=== PATIENT | male | born 1960 | race Caucasian/White ===

== ENCOUNTER → 2017-03-31 | Outpatient (CLI) | payer BC, OTHER ==
[~2017-03-31] MED LIST: AMARYL4 MG PO; AMBIEN CR12.5 MG PO; BENICAR HCT 401 EAC1 PO; BUTRANS1 EAC1 TRANSDERM; BYSTOLIC20 MG PO; CLEOCIN HCL150 MG PO; COLACE100 MG PO; DAILY VITE1 EACH PO; FLEXERIL PO; FOLIC ACID0.8 MG PO; FORTESTA60 GM; GENTEAL GEL DRO15 ML OPHTHALMIC; INVOKANA100 MG PO; JANUVIA100 MG PO; LEVOTHYROXINE 0.1 MG PO; METHOTREXA25 MG/1 ML IM; PERCOCET 10-321 EACH PO; PREDNISONE 5 MG5 MG PO; PRILOSEC 20 MG20 MG PO; PROBIOTIC1 EAC1 PO; QVAR8.7 G1; SINGULAIR 10 MG10 M1 PO; TRAZODONE HCL50 MG PO; VERAPAMIL HCL180 M4 PO
== END ==
LOC: HYPER 03-30 13:54
DX: T25.331A Burn of third degree of right toe(s) (nail), initial encounter (principal); T31.0 Burns involving less than 10% of body surface; E11.49 Type 2 diabetes mellitus with other diabetic neurological complication; E11.65 Type 2 diabetes mellitus with hyperglycemia; I87.2 Venous insufficiency (chronic) (peripheral); I10 Essential (primary) hypertension; E78.5 Hyperlipidemia, unspecified; E03.9 Hypothyroidism, unspecified; G89.4 Chronic pain syndrome; E66.01 Morbid (severe) obesity due to excess calories; Z68.41 Body mass index [BMI] 40.0-44.9, adult; T79.8XXA Other early complications of trauma, initial encounter; Y93.89 Activity, other specified; X08.8XXA Exposure to other specified smoke, fire and flames, initial encounter; Y92.89 Other specified places as the place of occurrence of the external cause; Y99.8 Other external cause status

== ENCOUNTER → 2017-04-06 | Outpatient (CLI) | payer BC, OTHER | LOC: HYPER 08:15 | DX: T25.331D Burn of third degree of right toe(s) (nail), subsequent encounter (principal); T31.0 Burns involving less than 10% of body surface; E11.65 Type 2 diabetes mellitus with hyperglycemia; E11.49 Type 2 diabetes mellitus with other diabetic neurological complication; I87.2 Venous insufficiency (chronic) (peripheral); I10 Essential (primary) hypertension; L84 Corns and callosities; E78.5 Hyperlipidemia, unspecified; E03.9 Hypothyroidism, unspecified; G57.91 Unspecified mononeuropathy of right lower limb; E66.01 Morbid (severe) obesity due to excess calories; Z68.41 Body mass index [BMI] 40.0-44.9, adult; X58.XXXD Exposure to other specified factors, subsequent encounter ==

== ENCOUNTER → 2017-04-13 | Outpatient (CLI) | payer BC, OTHER | LOC: HYPER 06:45 | DX: T25.331D Burn of third degree of right toe(s) (nail), subsequent encounter (principal); T31.0 Burns involving less than 10% of body surface; I87.2 Venous insufficiency (chronic) (peripheral); D86.9 Sarcoidosis, unspecified; E03.9 Hypothyroidism, unspecified; E11.49 Type 2 diabetes mellitus with other diabetic neurological complication; E66.01 Morbid (severe) obesity due to excess calories; Z68.41 Body mass index [BMI] 40.0-44.9, adult; G57.91 Unspecified mononeuropathy of right lower limb; I10 Essential (primary) hypertension; Z79.4 Long term (current) use of insulin; Z79.84 Long term (current) use of oral hypoglycemic drugs; X08.8XXD Exposure to other specified smoke, fire and flames, subsequent encounter ==

== ENCOUNTER → 2017-04-20 | Outpatient (CLI) | payer BC, OTHER | LOC: HYPER 07:08 | DX: T25.331D Burn of third degree of right toe(s) (nail), subsequent encounter (principal); T31.0 Burns involving less than 10% of body surface; E11.40 Type 2 diabetes mellitus with diabetic neuropathy, unspecified; E11.65 Type 2 diabetes mellitus with hyperglycemia; I87.2 Venous insufficiency (chronic) (peripheral); I10 Essential (primary) hypertension; E03.9 Hypothyroidism, unspecified; E78.5 Hyperlipidemia, unspecified; L84 Corns and callosities; G57.91 Unspecified mononeuropathy of right lower limb; E66.01 Morbid (severe) obesity due to excess calories; Z68.41 Body mass index [BMI] 40.0-44.9, adult; Z79.4 Long term (current) use of insulin; Z79.84 Long term (current) use of oral hypoglycemic drugs; T79.8XXD Other early complications of trauma, subsequent encounter; X08.8XXD Exposure to other specified smoke, fire and flames, subsequent encounter ==

== ENCOUNTER → 2017-04-27 | Outpatient (CLI) | payer BC, OTHER | LOC: HYPER 06:50 | DX: T25.331D Burn of third degree of right toe(s) (nail), subsequent encounter (principal); T31.0 Burns involving less than 10% of body surface; E11.65 Type 2 diabetes mellitus with hyperglycemia; I87.2 Venous insufficiency (chronic) (peripheral); I10 Essential (primary) hypertension; E78.5 Hyperlipidemia, unspecified; E03.9 Hypothyroidism, unspecified; L84 Corns and callosities; G57.91 Unspecified mononeuropathy of right lower limb; G89.4 Chronic pain syndrome; E66.01 Morbid (severe) obesity due to excess calories; Z68.41 Body mass index [BMI] 40.0-44.9, adult; Z79.84 Long term (current) use of oral hypoglycemic drugs; Z79.4 Long term (current) use of insulin; X08.8XXD Exposure to other specified smoke, fire and flames, subsequent encounter ==

== ENCOUNTER → 2017-05-10 | Outpatient (CLI) | payer BC, OTHER | LOC: HYPER 06:42 | DX: T25.331D Burn of third degree of right toe(s) (nail), subsequent encounter (principal); T31.0 Burns involving less than 10% of body surface; L84 Corns and callosities; E11.41 Type 2 diabetes mellitus with diabetic mononeuropathy; E11.65 Type 2 diabetes mellitus with hyperglycemia; I10 Essential (primary) hypertension; I87.2 Venous insufficiency (chronic) (peripheral); E78.5 Hyperlipidemia, unspecified; E03.9 Hypothyroidism, unspecified; E66.01 Morbid (severe) obesity due to excess calories; G89.4 Chronic pain syndrome; Z79.4 Long term (current) use of insulin; Z79.84 Long term (current) use of oral hypoglycemic drugs; Z68.41 Body mass index [BMI] 40.0-44.9, adult ==

== ENCOUNTER → 2017-05-24 | Outpatient (CLI) | payer BC, OTHER | LOC: HYPER 06:48 | DX: T25.331D Burn of third degree of right toe(s) (nail), subsequent encounter (principal); T31.0 Burns involving less than 10% of body surface; T79.8XXD Other early complications of trauma, subsequent encounter; L84 Corns and callosities; G57.91 Unspecified mononeuropathy of right lower limb; E11.40 Type 2 diabetes mellitus with diabetic neuropathy, unspecified; E11.65 Type 2 diabetes mellitus with hyperglycemia; I87.2 Venous insufficiency (chronic) (peripheral); E66.01 Morbid (severe) obesity due to excess calories; D86.9 Sarcoidosis, unspecified; E03.9 Hypothyroidism, unspecified; I10 Essential (primary) hypertension; G89.4 Chronic pain syndrome; E78.5 Hyperlipidemia, unspecified; Z79.4 Long term (current) use of insulin; Z79.84 Long term (current) use of oral hypoglycemic drugs ==

== ENCOUNTER → 2017-06-02 | Outpatient (CLI) | payer BC, OTHER | LOC: HYPER 07:16 | DX: T25.331D Burn of third degree of right toe(s) (nail), subsequent encounter (principal); T31.0 Burns involving less than 10% of body surface; E11.40 Type 2 diabetes mellitus with diabetic neuropathy, unspecified; E11.65 Type 2 diabetes mellitus with hyperglycemia; L84 Corns and callosities; I87.2 Venous insufficiency (chronic) (peripheral); I10 Essential (primary) hypertension; E66.01 Morbid (severe) obesity due to excess calories; E78.5 Hyperlipidemia, unspecified; E03.9 Hypothyroidism, unspecified; G57.91 Unspecified mononeuropathy of right lower limb; Z68.41 Body mass index [BMI] 40.0-44.9, adult; Z79.4 Long term (current) use of insulin; Z79.84 Long term (current) use of oral hypoglycemic drugs; X08.8XXD Exposure to other specified smoke, fire and flames, subsequent encounter ==

== ENCOUNTER → 2017-06-16 | Outpatient (CLI) | payer BC, OTHER | LOC: HYPER 07:51 | DX: T25.331D Burn of third degree of right toe(s) (nail), subsequent encounter (principal); G57.91 Unspecified mononeuropathy of right lower limb; I87.2 Venous insufficiency (chronic) (peripheral); E66.01 Morbid (severe) obesity due to excess calories; Z68.41 Body mass index [BMI] 40.0-44.9, adult; E03.9 Hypothyroidism, unspecified; D86.9 Sarcoidosis, unspecified; I10 Essential (primary) hypertension; E11.40 Type 2 diabetes mellitus with diabetic neuropathy, unspecified; E78.5 Hyperlipidemia, unspecified; Z79.4 Long term (current) use of insulin; Z79.84 Long term (current) use of oral hypoglycemic drugs; X08.8XXD Exposure to other specified smoke, fire and flames, subsequent encounter ==

== ENCOUNTER → 2017-07-18 | Outpatient (CLI) | payer BC, OTHER | LOC: HYPER 07-13 06:47 | DX: T25.331D Burn of third degree of right toe(s) (nail), subsequent encounter (principal); I87.2 Venous insufficiency (chronic) (peripheral); G57.91 Unspecified mononeuropathy of right lower limb; D86.9 Sarcoidosis, unspecified; E03.9 Hypothyroidism, unspecified; E11.40 Type 2 diabetes mellitus with diabetic neuropathy, unspecified; I10 Essential (primary) hypertension; E78.5 Hyperlipidemia, unspecified; E66.01 Morbid (severe) obesity due to excess calories; Z68.41 Body mass index [BMI] 40.0-44.9, adult; Z79.4 Long term (current) use of insulin; Z79.84 Long term (current) use of oral hypoglycemic drugs; X08.8XXD Exposure to other specified smoke, fire and flames, subsequent encounter ==

== ENCOUNTER → 2017-08-01 | Outpatient (CLI) | payer BC, OTHER | LOC: HYPER 06:46 | DX: T25.331D Burn of third degree of right toe(s) (nail), subsequent encounter (principal); T31.0 Burns involving less than 10% of body surface; E11.40 Type 2 diabetes mellitus with diabetic neuropathy, unspecified; E11.65 Type 2 diabetes mellitus with hyperglycemia; I87.2 Venous insufficiency (chronic) (peripheral); I10 Essential (primary) hypertension; L84 Corns and callosities; E03.9 Hypothyroidism, unspecified; E78.5 Hyperlipidemia, unspecified; E66.01 Morbid (severe) obesity due to excess calories; G89.4 Chronic pain syndrome; D86.9 Sarcoidosis, unspecified; G57.91 Unspecified mononeuropathy of right lower limb; Z68.41 Body mass index [BMI] 40.0-44.9, adult; Z79.4 Long term (current) use of insulin; Z79.84 Long term (current) use of oral hypoglycemic drugs; X08.8XXD Exposure to other specified smoke, fire and flames, subsequent encounter ==

== ENCOUNTER → 2017-08-24 | Outpatient (CLI) | payer BC, OTHER | LOC: HYPER 08-22 07:09 | DX: T25.321D Burn of third degree of right foot, subsequent encounter (principal); T31.0 Burns involving less than 10% of body surface; I87.2 Venous insufficiency (chronic) (peripheral); E66.01 Morbid (severe) obesity due to excess calories; D86.9 Sarcoidosis, unspecified; E03.9 Hypothyroidism, unspecified; I10 Essential (primary) hypertension; G89.4 Chronic pain syndrome; E11.40 Type 2 diabetes mellitus with diabetic neuropathy, unspecified; E78.5 Hyperlipidemia, unspecified; Z68.42 Body mass index [BMI] 45.0-49.9, adult; Z79.84 Long term (current) use of oral hypoglycemic drugs; Z79.4 Long term (current) use of insulin; X08.8XXD Exposure to other specified smoke, fire and flames, subsequent encounter ==

== ENCOUNTER → 2017-09-14 | Outpatient (CLI) | payer BC, OTHER | LOC: HYPER 07:07 | DX: T25.331D Burn of third degree of right toe(s) (nail), subsequent encounter (principal); E11.41 Type 2 diabetes mellitus with diabetic mononeuropathy; G58.9 Mononeuropathy, unspecified; I87.2 Venous insufficiency (chronic) (peripheral); E66.01 Morbid (severe) obesity due to excess calories; Z68.41 Body mass index [BMI] 40.0-44.9, adult; T31.0 Burns involving less than 10% of body surface; X08.8XXD Exposure to other specified smoke, fire and flames, subsequent encounter ==

== ENCOUNTER → 2018-01-02 | Outpatient (CLI) | payer BC, OTHER | LOC: HYPER 12-14 12:37 | DX: E11.621 Type 2 diabetes mellitus with foot ulcer (principal); I87.311 Chronic venous hypertension (idiopathic) with ulcer of right lower extremity; L97.511 Non-pressure chronic ulcer of other part of right foot limited to breakdown of skin; T25.331D Burn of third degree of right toe(s) (nail), subsequent encounter; T31.0 Burns involving less than 10% of body surface; L84 Corns and callosities; E11.40 Type 2 diabetes mellitus with diabetic neuropathy, unspecified; E66.01 Morbid (severe) obesity due to excess calories; E78.5 Hyperlipidemia, unspecified; E03.9 Hypothyroidism, unspecified; D86.9 Sarcoidosis, unspecified; G89.4 Chronic pain syndrome; I10 Essential (primary) hypertension; M35.00 Sjogren syndrome, unspecified; Z79.4 Long term (current) use of insulin; Z79.84 Long term (current) use of oral hypoglycemic drugs; Z68.41 Body mass index [BMI] 40.0-44.9, adult; X08.8XXD Exposure to other specified smoke, fire and flames, subsequent encounter ==

== ENCOUNTER → 2018-08-13 | Outpatient (CLI) | payer BC, OTHER | LOC: HYPER 07:03 | DX: E11.622 Type 2 diabetes mellitus with other skin ulcer (principal); I87.311 Chronic venous hypertension (idiopathic) with ulcer of right lower extremity; L97.512 Non-pressure chronic ulcer of other part of right foot with fat layer exposed; E11.40 Type 2 diabetes mellitus with diabetic neuropathy, unspecified; E66.01 Morbid (severe) obesity due to excess calories; D86.9 Sarcoidosis, unspecified; E03.9 Hypothyroidism, unspecified; L84 Corns and callosities; I10 Essential (primary) hypertension; G89.4 Chronic pain syndrome; E78.5 Hyperlipidemia, unspecified; Z79.4 Long term (current) use of insulin; Z68.41 Body mass index [BMI] 40.0-44.9, adult; Z79.84 Long term (current) use of oral hypoglycemic drugs ==

== ENCOUNTER → 2018-08-20 | Outpatient (CLI) | payer BC, OTHER | LOC: HYPER 06:51 | DX: E11.621 Type 2 diabetes mellitus with foot ulcer (principal); I87.311 Chronic venous hypertension (idiopathic) with ulcer of right lower extremity; L97.511 Non-pressure chronic ulcer of other part of right foot limited to breakdown of skin; L84 Corns and callosities; E11.65 Type 2 diabetes mellitus with hyperglycemia; E11.40 Type 2 diabetes mellitus with diabetic neuropathy, unspecified; E78.5 Hyperlipidemia, unspecified; E66.01 Morbid (severe) obesity due to excess calories; E03.9 Hypothyroidism, unspecified; D86.9 Sarcoidosis, unspecified; G89.4 Chronic pain syndrome; G57.91 Unspecified mononeuropathy of right lower limb; M35.00 Sjogren syndrome, unspecified; Z79.4 Long term (current) use of insulin; Z79.84 Long term (current) use of oral hypoglycemic drugs; Z68.41 Body mass index [BMI] 40.0-44.9, adult ==